=== PATIENT | female | born 2005 | race African-American/Black ===

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

== ENCOUNTER 2024-04-14 00:11 | Emergency (ER) | payer MEDICAID ==
[~2024-04-14] VITALS: Ht 170.2 cm; Wt 121.0 kg
[~2024-04-14 00:11] MED LIST changes: +BENZ100C86 MT; +P50 MT
[2024-04-14 00:27] VITALS: TEMP 99; O2SAT 99
[2024-04-14] MEDS ORDERED: IBUPROFEN 600MG TABLET PO ONE (03:00)
[2024-04-14 03:33] LABS: BASOPHILS % 0.4 % (0.0-2.0); HEMATOCRIT. 33.8 % (36.0-48.0); HEMOGLOBIN. 10.8 g/dL (12.0-16.0); LYMPHOCYTES % 19.4 % (20.0-50.0); MEAN CORPUSCULAR HEMOGLOBIN 30.5 pg (28.0-32.0); MEAN CORPUSCULAR VOLUME 95.1 fL (81.0-99.0); MEAN PLATELET VOLUME 7.7 fl (7.4-10.4); MONOCYTES % 9.7 % (2.0-8.0); NEUTROPHILS % 66.5 % (40.0-76.0); PLATELET 295 x1000/uL (130-400); RED BLOOD CELL COUNT 3.56 mill/uL (4.2-5.4); RED CELL DISTRIBUTION WIDTH 14.7 % (11.6-14.6); WHITE BLOOD COUNT 3.9 x1000/uL (4.5-11.0)
[2024-04-14 03:56] LABS: CHLORIDE 106 mEq/L (98-107); POTASSIUM 3.7 mEq/L (3.5-5.1); SODIUM 136 mEq/L (136-145)
[2024-04-14 03:57] LABS: CALCIUM 9.4 mg/dL (8.7-10.4); CARBON DIOXIDE 22 mEq/L (21-32)
[2024-04-14 04:02] LABS: CREATININE 0.7 mg/dL (0.6-1.0); GLUCOSE 86 mg/dL (70-105); UREA NITROGEN BLOOD 11 mg/dL (9-23)
[2024-04-14 04:04] LABS: ALANINE AMINOTRANSFERASE 10 IU/L (10-49); ASPARTATE AMINOTRANSFERASE 18 IU/L (<34); BILIRUBIN DIRECT 0.2 mg/dL (<=3.0)
[2024-04-14 04:05] LABS: BILIRUBIN TOTAL 0.5 mg/dL (0.1-1.0)
[2024-04-14 04:07] LABS: TROPONIN I HIGH SENSITIVITY < 4 ng/L (3.0-34)
[2024-04-14 04:19] LABS: PARTIAL THROMBOPLASTIN TIME 28.5 sec (23.4-31.0); PROTHROMBIN TIME 11.6 sec (9.6-11.0)
[2024-04-14 04:30] VITALS: BP 124/63; PULSE 97; RESP 16
[2024-04-14] MEDS: IBUPROFEN 600MG TABLET PO NR (04:30)
== END 2024-04-14 05:13 | disposition home or self-care (01) ==
LOC: ER 00:11
DX: R07.9 Chest pain, unspecified (principal); R60.9 Edema, unspecified; J45.909 Unspecified asthma, uncomplicated; Z91.013 Allergy to seafood
CPT/HCPCS: 36415; 71045; 80048; 80076; 83880; 84484; 85025; 99284

== ENCOUNTER 2024-07-15 13:03 | Emergency (ER) | payer BC, MEDICAID ==
[~2024-07-15] VITALS: Ht 170.2 cm; Wt 104.0 kg
[2024-07-15 13:35] VITALS: O2SAT 99
[2024-07-15] MEDS: KETOROLAC 30MG/ML VIAL IM STA (13:55)
[2024-07-15] MEDS: LIDOCAINE HCL/PF 1% 10 MG/ML 5ML VIAL INFIL ONE (14:00)
[2024-07-15] MEDS ORDERED: CEFTRIAXONE SODIUM 1G VIAL IM ONE (14:00)
[2024-07-15] MEDS ORDERED: METHYLPREDNISOLONE SOD SUCC 125MG/2ML (ACT-O-VIAL) IM ONE (14:00)
[2024-07-15] MEDS: CEFTRIAXONE SODIUM 1G VIAL IM NR (15:07)
[2024-07-15] MEDS: METHYLPREDNISOLONE SOD SUCC 125MG/2ML (ACT-O-VIAL) IM NR (15:09)
[2024-07-15] MEDS: DIPHENHYDRAMINE 25MG CAPSULE PO ONE (16:35)
[2024-07-15] MEDS: FAMOTIDINE 20MG TABLET PO ONE (16:35)
[2024-07-15] MEDS ORDERED: FAMO20TA8 MT (17:29)
[2024-07-15] MEDS ORDERED: CHLO473M2 MT (17:29)
[2024-07-15] MEDS ORDERED: CLIN-194 PO (17:29)
[2024-07-15] MEDS ORDERED: NAPR-681 PO (17:29)
[2024-07-15 18:05] VITALS: BP 127/66; PULSE 75; RESP 17; TEMP 36.72516; O2SAT 100
== END 2024-07-15 15:35 | disposition home or self-care (01) ==
LOC: ER 13:36
DX: K04.7 Periapical abscess without sinus (principal); K14.0 Glossitis; J45.909 Unspecified asthma, uncomplicated; Z91.013 Allergy to seafood; Z79.899 Other long term (current) drug therapy
CPT/HCPCS: 99284; 96372; Q0163; J0696; J1885; J3490; J2919

== ENCOUNTER 2025-03-30 22:40 | Emergency (ER) | payer MEDICAID ==
[~2025-03-30] VITALS: Ht 170.2 cm; Wt 108.0 kg
[~2025-03-30 22:40] MED LIST changes: +CHLO473M2 MT; +CLIN-194 PO; +FAMO20TA8 MT; +NAPR-681 PO
[2025-03-30 23:07] VITALS: O2SAT 100
[2025-03-31] MEDS: ACETAMINOPHEN 325MG TABLET PO ONE (00:29)
[2025-03-31 00:37] LABS: BASOPHILS % 0.6 % (0.0-2.0); EOSINOPHILS % 1.1 % (0.0-5.0); HEMATOCRIT. 37.8 % (36.0-48.0); HEMOGLOBIN. 12.5 g/dL (12.0-16.0); LYMPHOCYTES % 39.5 % (20.0-50.0); MEAN CORPUSCULAR HEMOGLOBIN 31.5 pg (28.0-32.0); MEAN CORPUSCULAR VOLUME 95.6 fL (81.0-99.0); MEAN PLATELET VOLUME 7.7 fl (7.4-10.4); MONOCYTES % 11.1 % (2.0-8.0); NEUTROPHILS % 47.7 % (40.0-76.0); PLATELET 311 x1000/uL (130-400); RED BLOOD CELL COUNT 3.96 mill/uL (4.2-5.4); RED CELL DISTRIBUTION WIDTH 13.2 % (11.6-14.6)
[2025-03-31 00:49] LABS: CHLORIDE 104 mEq/L (98-107); POTASSIUM 3.5 mEq/L (3.5-5.1); SODIUM 138 mEq/L (136-145)
[2025-03-31 00:50] LABS: CARBON DIOXIDE 26 mEq/L (21-32)
[2025-03-31 00:55] LABS: GLUCOSE 90 mg/dL (70-105); UREA NITROGEN BLOOD 15 mg/dL (9-23)
[2025-03-31 00:58] LABS: TROPONIN I HIGH SENSITIVITY 26 ng/L (3.0-34)
[2025-03-31 01:37] LABS: HCG SCREEN NEGATIVE
[2025-03-31 02:27] VITALS: BP 113/67; PULSE 83; RESP 20; TEMP 36.6; O2SAT 98
== END 2025-03-31 02:30 | disposition home or self-care (01) ==
LOC: ER 22:40
DX: R07.89 Other chest pain (principal); R06.02 Shortness of breath; F17.200 Nicotine dependence, unspecified, uncomplicated; Z79.899 Other long term (current) drug therapy
CPT/HCPCS: 36415; 71045; 80048; 83880; 84484; 84703; 85025; 85379; 93005; 99285